=== PATIENT | female | born 1955 | race Caucasian/White ===

== ENCOUNTER 2021-03-28 09:18 | Inpatient (IN) | payer OTHER ==
[~2021-03-28] VITALS: Ht 162.6 cm; Wt 84.5 kg
--- NOTE | 2021-03-28 09:33 | NUR ---
PT CHANGED INTO GOWN, MONITORS IN PLACE. CALL LIGHT WITHIN REACH. FAMILY AT BS
--- NOTE | 2021-03-28 09:39 | NUR ---
PA AT BS
--- NOTE | 2021-03-28 09:46 | NUR ---
XRAY AT BS
--- NOTE | 2021-03-28 09:51 | NUR ---
PT TO CT
[2021-03-28 09:58] LABS: BASOPHILS % (AUTO) 1 % (0-1); EOSINOPHILS % (AUTO) 1 % (1-7); LYMPHOCYTES % (AUTO) 12 % (22-44); MEAN CORPUSCULAR HEMOGLOBIN 33.9 pg (27.0-34.8); MEAN CORPUSCULAR HGB CONC 34.1 g/dL (32.4-35.8); MEAN PLATELET VOLUME 8.4 fL (7.4-10.4); MONOCYTES % (AUTO) 9 % (2-9); NEUTROPHILS % (AUTO) 79 % (42-75); PLATELET COUNT 238 x10^3/uL (130-400); RED BLOOD COUNT 3.68 x10^6/uL (3.82-5.3); RED CELL DISTRIBUTION WIDTH 12.8 % (9.6-15.2)
[2021-03-28 10:02] LABS: MD NO
--- NOTE | 2021-03-28 10:07 | NUR ---
PT BACK FROM CT. CONNECTED TO MONITORS, AT BS. CALL LIGHT WITHIN REACH
[2021-03-28 10:20] LABS: ALANINE AMINOTRANSFERASE 19 U/L (12-78); ALBUMIN 3.6 g/dL (3.4-5.0); ANION GAP 7 mmol/L (5-15); CHLORIDE 105 mmol/L (98-107); CREATININE 0.67 mg/dL (0.55-1.02)
[2021-03-28 10:22] LABS: ALKALINE PHOSPHATASE 65 U/L (45-117); BILIRUBIN,TOTAL 0.7 mg/dL (0.2-1.0); TOTAL PROTEIN 7.6 g/dL (6.4-8.2)
--- NOTE | 2021-03-28 11:05 | NUR ---
PT SITTING ON GURNEY, WATCHING TV. CALL LIGHT WITHIN REACH. NADN/VSS.
--- NOTE | 2021-03-28 11:31 | NUR ---
Pt to be admitted to [facility], room 347. Report called to TAMERA.
[2021-03-28 12:08] VITALS: BP 116/78
[2021-03-28] MEDS ORDERED: ACETAMINOPHEN 325 MG TABLET PO PRN (12:30)
[2021-03-28] MEDS ORDERED: HYDROcodone/APAP 5/325 TABLET PO PRN (12:30)
[2021-03-28] MEDS ORDERED: GUAIFENESIN/DM 200-20MG, 10ML UDC PO PRN (12:30)
[2021-03-28] MEDS ORDERED: ONDANSETRON 2MG/ML, 2ML IVPush PRN (12:30)
[2021-03-28] MEDS ORDERED: MELATONIN 5 MG TABLET PO PRN (12:30)
[2021-03-28] MEDS ORDERED: morphine SULFATE 10 MG/ML, 1ML IVPush PRN (12:30)
[2021-03-28] MEDS ORDERED: hydrALAzine 20 MG/ML, 1ML IVPush PRN (12:30)
[2021-03-28] MEDS: POTASSIUM CHLORIDE 20 MEQ, MAGNESIUM SULFATE 2 GM, THIAMINE 200 MG, MVI ADULT 10 ML, FO... IV SCH (13:43)
[2021-03-28] MEDS ORDERED: ENOXAPARIN 40 MG/0.4 ML SQ SCH (18:00)
[2021-03-28] MEDS: POLYETHYLENE GLYCOL 17 GM PACKET PO PRN (18:30)
[2021-03-28 20:11] VITALS: BP 106/72
[2021-03-28] MEDS: LACTULOSE 10 GM/15 ML UDC PO SCH (20:24)
[2021-03-29 01:40] VITALS: BP 111/76
[2021-03-29 05:27] LABS: BASOPHILS % (AUTO) 1 % (0-1); EOSINOPHILS % (AUTO) 2 % (1-7); LYMPHOCYTES % (AUTO) 30 % (22-44); MD NO; MEAN CORPUSCULAR HEMOGLOBIN 33.8 pg (27.0-34.8); MEAN CORPUSCULAR HGB CONC 33.9 g/dL (32.4-35.8); MEAN PLATELET VOLUME 8.7 fL (7.4-10.4); MONOCYTES % (AUTO) 13 % (2-9); NEUTROPHILS % (AUTO) 54 % (42-75); PLATELET COUNT 227 x10^3/uL (130-400); RED CELL DISTRIBUTION WIDTH 12.7 % (9.6-15.2)
[2021-03-29 05:47] LABS: CHLORIDE 110 mmol/L (98-107)
[2021-03-29 06:05] LABS: ALANINE AMINOTRANSFERASE 18 U/L (12-78); ALBUMIN 2.7 g/dL (3.4-5.0); ALKALINE PHOSPHATASE 55 U/L (45-117); ANION GAP 6 mmol/L (5-15); BILIRUBIN,TOTAL 0.5 mg/dL (0.2-1.0); CALCIUM 7.9 mg/dL (8.5-10.1); CREATININE 0.56 mg/dL (0.55-1.02)
[2021-03-29 07:31] VITALS: BP 120/81
[2021-03-29] MEDS: LACTULOSE 10 GM/15 ML UDC PO SCH (09:25)
[2021-03-29 12:23] VITALS: BP 105/69
[2021-03-29] MEDS: POTASSIUM CHLORIDE 20 MEQ, MAGNESIUM SULFATE 2 GM, THIAMINE 200 MG, MVI ADULT 10 ML, FO... IV SCH (14:20)
[2021-03-29 19:03] VITALS: BP 128/84
[2021-03-30 00:57] VITALS: BP 124/79
[2021-03-30 06:52] VITALS: BP 122/84
[2021-03-30] MEDS ORDERED: MIDAZOLAM 1 MG/ML, 2ML ONE (10:52)
[2021-03-30] MEDS ORDERED: FENTANYL PF 250 MCG/5ML ONE (10:52)
[2021-03-30] MEDS ORDERED: LIDOCAINE-MPF 2% ,5ML ONE (10:53)
[2021-03-30] MEDS ORDERED: ONDANSETRON 2MG/ML, 2ML ONE (10:53)
[2021-03-30] MEDS ORDERED: CEFAZOLIN 1,000 MG ONE ×2 (10:53)
[2021-03-30] MEDS ORDERED: PROPOFOL 10 MG/ML, 20ML ONE (10:53)
[2021-03-30] MEDS ORDERED: CHLORHEXIDINE 15 ML UDC ONE (11:59)
[2021-03-30] MEDS ORDERED: EPINEPHRINE 1 MG/ML, 1ML ONE (12:13)
[2021-03-30] MEDS ORDERED: BUPIVACAINE/PF 0.5% ONE (12:13)
[2021-03-30] MEDS ORDERED: ROCURONIUM 10MG/ML,5ML ONE (12:23)
[2021-03-30] MEDS ORDERED: LABETALOL 5MG/ML, 20ML IV PRN (12:30)
[2021-03-30] MEDS ORDERED: DIAZEPAM 5 MG/ML, 2ML IVPush PRN (12:30)
[2021-03-30] MEDS ORDERED: CHLORHEXIDINE 15 ML UDC PO ONE (12:30)
[2021-03-30] MEDS ORDERED: ONDANSETRON 2MG/ML, 2ML IVPush PRN (12:30)
[2021-03-30] MEDS ORDERED: HYDROmorphone 1 MG/ML, 1ML INJ IVPush PRN (12:30)
[2021-03-30] MEDS ORDERED: ACETAMINOPHEN 325 MG TABLET PO PRN (12:30)
[2021-03-30] MEDS ORDERED: PROMETHAZINE 25 MG/ML, 1ML IVPush PRN (12:30)
[2021-03-30] MEDS ORDERED: MEPERIDINE/PF 25MG/0.5ML IVPush PRN (12:30)
[2021-03-30] MEDS ORDERED: DIPHENHYDRAMINE 50 MG/ML, 1ML IVPush PRN (12:30)
[2021-03-30] MEDS ORDERED: hydrALAzine 20 MG/ML, 1ML IV PRN (12:30)
[2021-03-30] MEDS ORDERED: OXYcodone 5 MG/5 ML ORAL.SOL UDC PO PRN (12:30)
[2021-03-30] MEDS ORDERED: DEXAMETHASONE 4 MG/ML, 5ML ONE (12:54)
[2021-03-30] MEDS ORDERED: GLYCOPYRROLATE 0.2MG/1ML, 5ML ONE (13:52)
[2021-03-30] MEDS ORDERED: NEOSTIGMINE 1 MG/ML, 10ML ONE (13:52)
[2021-03-30] MEDS ORDERED: MEPERIDINE/PF 25MG/ML,1ML ONE (14:16)
[2021-03-30] MEDS ORDERED: FENTANYL PF 100 MCG/2ML ONE (14:28)
[2021-03-30] MEDS ORDERED: HYDROcodone/APAP 7.5-325MG/15ML UDC ONE (14:28)
[2021-03-30] MEDS: FENTANYL PF 100 MCG/2ML IV PRN ×2 (14:30→14:40)
[2021-03-30] MEDS ORDERED: DIAZEPAM 5 MG/ML, 2ML ONE (14:48)
[2021-03-30] MEDS ORDERED: HYDROcodone/APAP 7.5-325MG/15ML UDC PO PRN (15:00)
[2021-03-30 15:33] VITALS: BP 135/81
[2021-03-30] MEDS: POLYETHYLENE GLYCOL 17 GM PACKET PO PRN (16:00)
[2021-03-30] MEDS: LACTULOSE 10 GM/15 ML UDC PO PRN (16:00)
[2021-03-30] MEDS: POTASSIUM CHLORIDE 20 MEQ, MAGNESIUM SULFATE 2 GM, THIAMINE 200 MG, MVI ADULT 10 ML, FO... IV SCH (16:01)
[2021-03-30 16:08] LABS: ANION GAP 6 mmol/L (5-15); CALCIUM 8.3 mg/dL (8.5-10.1); CHLORIDE 110 mmol/L (98-107); CREATININE 0.55 mg/dL (0.55-1.02)
[2021-03-30 19:06] VITALS: BP 111/83
[2021-03-30] MEDS: CEFAZOLIN PMX 1GM/50ML 50 ML IV SCH (19:44)
[2021-03-31 00:07] VITALS: BP 107/74
[2021-03-31] MEDS: CEFAZOLIN PMX 1GM/50ML 50 ML IV SCH (04:11)
[2021-03-31 04:36] VITALS: BP 121/72
[2021-03-31 06:40] VITALS: BP 138/80
[2021-03-31] MEDS ORDERED: BISACODYL 10 MG SUPP PR PRN (08:00)
[2021-03-31] MEDS ORDERED: ENOXAPARIN 40 MG/0.4 ML SQ SCH (08:00)
[2021-03-31] MEDS: LACTULOSE 10 GM/15 ML UDC PO PRN (08:20)
[2021-03-31 14:05] VITALS: BP 120/83
[2021-03-31] MEDS ORDERED: HYDR-2214 PO (15:37)
[2021-03-31] MEDS ORDERED: DOCU100T3 PO (15:37)
[2021-03-31 17:41] VITALS: BP 136/74
== END 2021-03-31 18:50 | disposition home health service (06) | DRG 493 ==
LOC: ED 10:59 → 3N 11:00 → 4NE 03-30 15:23
PROVIDERS: ADMIT Family Medicine; ATTEND Hospitalist
PROC: 0JQC0ZZ Repair Pelvic Region Subcutaneous Tissue and Fascia, Open Approach (ICD-10-PCS; 2021-03-29)
PROC: 0PSG04Z Reposition Left Humeral Shaft with Internal Fixation Device, Open Approach (ICD-10-PCS; principal; 2021-03-30 12:30)
DX: S42.202A Unspecified fracture of upper end of left humerus, initial encounter for closed fracture (principal); S06.899A Other specified intracranial injury with loss of consciousness of unspecified duration, initial encounter; F12.90 Cannabis use, unspecified, uncomplicated; K59.00 Constipation, unspecified; S00.81XA Abrasion of other part of head, initial encounter; S16.1XXA Strain of muscle, fascia and tendon at neck level, initial encounter; S70.12XA Contusion of left thigh, initial encounter; S39.83XA Other specified injuries of pelvis, initial encounter; E89.2 Postprocedural hypoparathyroidism; Z66 Do not resuscitate; Z20.822 Contact with and (suspected) exposure to COVID-19; W01.0XXA Fall on same level from slipping, tripping and stumbling without subsequent striking against object, initial encounter; Y92.89 Other specified places as the place of occurrence of the external cause; Y99.8 Other external cause status; Y93.K1 Activity, walking an animal; Z80.0 Family history of malignant neoplasm of digestive organs; Z80.8 Family history of malignant neoplasm of other organs or systems; Z72.89 Other problems related to lifestyle; Z88.5 Allergy status to narcotic agent
CPT/HCPCS: 36415; 72190; 73060; 76000; J3490; J7042; S0020; 70450; 71045; 72125; 72192; 80048; 80053; 83735; 84100; 84443; 85025; 87635; 93005; G0378; J0171; J0690; J1100; J1650; J2175; J2250; J2405; J2704; J2710; J3010; J3360; J3411; J3475; J3480